=== PATIENT | female | born 1985 | race Caucasian/White ===

== ENCOUNTER 2018-07-13 13:16 | Outpatient (CLI) | payer MEDICAID, OTHER | END 2018-07-13 16:20 | disposition home or self-care (01) | LOC: OBT 13:16 → L-D 13:16 → OBT 16:20 | DX: O26.843 Uterine size-date discrepancy, third trimester (principal); Z3A.39 39 weeks gestation of pregnancy | CPT/HCPCS: 76815; 76818 ==